=== PATIENT | female | born 1985 | race Caucasian/White ===

== ENCOUNTER 2018-08-25 18:16 | Emergency (ER) | payer OTHER ==
[2018-08-25 18:46] VITALS: BMI 26.2
[2018-08-25 18:49] VITALS: TEMP 98.4
[2018-08-25] MEDS ORDERED: Sodium Chloride 0.9% 1,000 ML IV STA (18:54)
[2018-08-25 19:39] LABS: BASO # 0.03 K/mm3 (0.0-2.0); BASO % 0.4 % (0.0-3.0); EOS # 0.2 (0.0-0.7); EOS % 2.9 % (1.5-5.0); HEMOGLOBIN 12.4 g/dL (12.0-16.0); LYMPH # 2.9 (1.2-3.4); LYMPH % 37.7 % (22.0-35.0); MEAN CELL VOLUME 93.1 fl (80.0-105.0); MEAN CORPUSCULAR HEMOGLOBIN 31.6 pg (25.0-35.0); MEAN PLATELET VOLUME 10.8 fl (7.0-11.0); MONO # 0.4 (0.1-0.6); MONO % 5.4 % (1.0-6.0); RBC 3.92 10^6/uL (3.5-6.1); RED CELL DISTRIBUTION WIDTH 13.3 % (11.5-14.5); URINE BILIRUBIN NEGATIVE (NEGATIVE); URINE BLOOD SMALL (NEGATIVE); URINE GLUCOSE (UA) NEGATIVE (NEGATIVE); URINE LEUKOCYTE ESTERASE NEGATIVE Leu/uL (NEGATIVE); URINE PROTEIN NEGATIVE mg/dL (<30 mg/dL); URINE UROBILINOGEN 0.2 E.U./dL (<1 E.U./dL); WHITE BLOOD COUNT 7.6 10^3/uL (4.5-11.0)
[2018-08-25 19:42] LABS: HCG,QUALITATIVE URINE POSITIVE (NEGATIVE); URINE APPEARANCE CLEAR (CLEAR); URINE COLOR LIGHT YELLOW (YELLOW)
[2018-08-25 19:47] LABS: INR 1.06; PROTHROMBIN TIME 11.8 SECONDS (9.4-12.5); URINE EPITHELIAL CELLS 0 - 2 /hpf (0-5); URINE RBC 0 - 2 /hpf (0-2)
[2018-08-25 19:51] LABS: ALB/GLOB RATIO 1.3 (1.1-1.8); ALBUMIN 4.4 g/dL (3.0-4.8); ALT/SGPT 17 U/L (7-56); AST/SGOT 22 U/L (14-36); BLOOD UREA NITROGEN 13 mg/dL (7-21); CALCIUM 9.6 mg/dL (8.4-10.5); GFR NON-AFRICAN AMERICAN > 60
[2018-08-25] MEDS ORDERED: Potassium Chloride 20 mEq ER Tab PO STA (20:14)
--- NOTE | 2018-08-25 21:35 | ED PDOC ---
Arrival/HPI - General Chief Complaint: Female Genitourinary Time Seen by Provider: 08/25/18 18:17 Historian: Patient - History of Present Illness Narrative History of Present Illness (Text): 33 y/o female A1 9-weeks by LMP presents to the ED c/o vaginal bleeding starting at 830am today. Associated clots and lower abdominal cramping. Follows regularly with her OBGYN. Per pt, she has had an ultrasound confirming IUP. Denies fever, chills, back pain, nausea, vomiting, urinary symptoms, or any other associated symptoms. Past Medical History - Psychiatric Hx Substance Use: No Family/Social History - Physician Review Nursing Documentation Reviewed: Yes Family/Social History: No Known Family HX Smoking Status: Never Smoked Hx Alcohol Use: No Hx Substance Use: No Allergies/Home Meds Allergies/Adverse Reactions: Allergies No Known Allergies Allergy (Verified 08/25/18 18:45) Home Medications: Home Meds Medication Instructions Recorded Confirmed No Known Home Med 08/25/18 08/25/18 Review of Systems - Review of Systems Constitutional: Normal. absent: Fevers Eyes: Normal. absent: Vision Changes ENT: Normal Respiratory: Normal. absent: SOB, Cough Cardiovascular: Normal. absent: Chest Pain, Palpitations Gastrointestinal: Abdominal Pain. absent: Stool Changes, Nausea, Vomiting, Appetite Changes Genitourinary Female: Vaginal Bleeding. absent: Dysuria, Frequency Musculoskeletal: Normal. absent: Arthralgias, Back Pain, Neck Pain Skin: Normal. absent: Rash Neurological: Normal. absent: Headache, Dizziness Endocrine: Normal Hemo/Lymphatic: Normal Psychiatric: Normal Physical Exam Vital Signs Reviewed: Yes Vital Signs Temp Pulse Resp BP Pulse Ox 08/25/18 18:46 98.4 F 65 18 126/79 100 Temperature: Afebrile Blood Pressure: Normal Pulse: Regular Respiratory Rate: Normal Appearance: Positive for: Well-Appearing, Non-Toxic, Comfortable Pain Distress: None Mental Status: Positive for: Alert and Oriented X 3 - Systems Exam Head: Present: Atraumatic, Normocephalic Pupils: Present: PERRL Extroacular Muscles: Present: EOMI Conjunctiva: Present: Normal Mouth: Present: Moist Mucous Membranes Neck: Present: Normal Range of Motion Respiratory/Chest: Present: Clear to Auscultation, Good Air Exchange. No: Respiratory Distress, Accessory Muscle Use Cardiovascular: Present: Regular Rate and Rhythm, Normal S1, S2 Abdomen: Present: Normal Bowel Sounds. No: Tenderness, Distention, Peritoneal Signs, Rebound, Guarding Back: Present: Normal Inspection. No: CVA Tenderness, Paraspinal Tenderness Upper Extremity: Present: Normal Inspection, Normal ROM, NORMAL PULSES, Neurovascularly Intact, Capillary Refill < 2s. No: Cyanosis, Edema, Temperature Abnormalties Lower Extremity: Present: Normal ROM Neurological: Present: GCS=15, CN II-XII Intact, Speech Normal, Motor Func Grossly Intact, Normal Sensory Function, Gait Normal Skin: Present: Warm, Dry, Normal Color. No: Rashes Psychiatric: Present: Alert, Oriented x 3, Normal Insight, Normal Concentration, Normal Affect, Normal Mood Medical Decision Making ED Course and Treatment: Initial Plan: * CBC, CMP * UA, culture * hcg quant * type and screen * Transvaginal US Bloodwork reviewed, unremarkable UA shows no infection US shows IUP at 6 weeks, no HR Bloodtype A+, no indication for rhogam Advised OB followup in 48 hours for repeat hcg and ultrasound. Diagnostic testing results and plan of care discussed with patient. Strict instructions given regarding prescription use, importance of followup, and signs/symptoms to return to ER including worsening pain, fever, chills, vomiting, or any other new/worsening symptoms. Pt verbalized understanding of discussion. Patient is A&Ox3, ambulating with steady gait, with vital signs stable for discharge. - Lab Interpretations Lab Results: PT 11.8 SECONDS (9.4-12.5) 08/25/18 19:25 INR 1.06 08/25/18 19:25 APTT 29.0 Seconds (26.9-38.3) 08/25/18 19:25 Total Bilirubin 0.4 mg/dL (0.2-1.3) 08/25/18 19:25 AST 22 U/L (14-36) 08/25/18 19:25 ALT 17 U/L (7-56) 08/25/18 19:25 Alkaline Phosphatase 42 U/L (38-126) 08/25/18 19:25 Total Protein 7.8 g/dL (5.8-8.3) 08/25/18 19:25 Albumin 4.4 g/dL (3.0-4.8) 08/25/18 19:25 Globulin 3.4 gm/dL 08/25/18: Albumin/Globulin Ratio 1.3 (1.1-1.8) 08/25/18 19:25 Urine Color Light yellow (YELLOW) 08/25/18:25 Urine Appearance Clear (CLEAR) 08/25/18: Urine pH 6.0 (4.7-8.0) 08/25/18: Ur Specific Ina 1.025 (1.005-1.035) 08/25/18: Urine Protein Negative mg/dL (<30 mg/dL) 08/25/18: Urine Glucose (UA) Negative mg/dL (NEGATIVE) 08/25/18: Urine Ketones Negative mg/dL (NEGATIVE) 08/25/18: Urine Blood Small (NEGATIVE) H 08/25/18:25 Urine Nitrate Negative (NEGATIVE) 08/25/18: Urine Bilirubin Negative (NEGATIVE) 08/25/18: Urine Urobilinogen 0.2 E.U./dL (<1 E.U./dL) 08/25/18:25 Ur Leukocyte Esterase Negative [place]/uL (NEGATIVE) 08/25/18:25 Urine RBC 0 - 2 /hpf (0-2) 08/25/18:25 Urine WBC None /hpf (0-6) 08/25/18:25 Ur Epithelial Cells 0 - 2 /hpf (0-5) 08/25/18:25 Urine HCG, Qual Positive (NEGATIVE) 08/25/18 Beta HCG, Quant 89384.00 mIU/mL (0-6.15) H 08/25/18:25 Urine HCG, Qual Positive (NEGATIVE) 08/25/18 19:25 08/25/18 19:25 08/25/18:25 Lab Results 08/25/18 21:40: Blood Type A POSITIVE, Antibody Screen Negative, BBK History Checked No verified bt 08/25/18:25: Beta HCG, Quant 45714.00 H 08/25/18:25: Sodium 140, Potassium 3.5 L, Chloride 104, Carbon Dioxide 25, Anion Gap 14, BUN 13, Creatinine 0.6 L, Est GFR ( Amer) > 60, Est GFR (Non-Af Amer) > 60, Random Glucose 98, Calcium 9.6, Total Bilirubin 0.4, AST 22, ALT 17, Alkaline Phosphatase 42, Total Protein 7.8, Albumin 4.4, Globulin 3.4, Albumin/Globulin Ratio 1.3 08/25/18 19:25: Urine Color Light yellow, Urine Appearance Clear, Urine pH 6.0, Ur Specific Ina 1.025, Urine Protein Negative, Urine Glucose (UA) Negative, Urine Ketones Negative, Urine Blood Small H, Urine Nitrate Negative, Urine Bilirubin Negative, Urine Urobilinogen 0.2, Ur Leukocyte Esterase Negative, Urine RBC 0 - 2, Urine WBC None, Ur Epithelial Cells 0 - 2, Urine HCG, Qual Positive 08/25/18 19:25: PT 11.8, INR 1.06, APTT 29.0 08/25/18 19:25: WBC 7.6, RBC 3.92, Hgb 12.4, Hct 36.5, MCV 93.1, MCH 31.6, MCHC 34.0, RDW 13.3, Plt Count 179, MPV 10.8, Neut % (Auto) 53.6, Lymph % (Auto) 37.7 H, [place] % (Auto) 5.4, Eos % (Auto) 2.9, Baso % (Auto) 0.4, Lymph # (Auto) 2.9, [place] # (Auto) 0.4, Eos # (Auto) 0.2, Baso # (Auto) 0.03, Absolute Neuts (auto) 4.10 I have reviewed the lab results: Yes - RAD Interpretation Narrative RAD Interpretations (Text): 08/29/18 09:50 Transvaginal Ultrasound: FINDINGS: The uterus is grossly unremarkable. There is a single intrauterine estimated to be roughly 6 weeks and 1 days post -3 days. No cardiac activity detected. Intrauterine demise not excluded. Recommend short-t erm interval follow-up. The right ovary has a 2.0 centimeter corpus luteum cyst. No free fluid the pelvis. IMPRESSION: As above. Radiology Orders: 08/25/18 18:53 OB TRANSVAGINAL [US] Stat Harness And Bag Inspector: Radiologist - Medication Orders Current Medication Orders: Discontinued Medications Sodium Chloride (Sodium Chloride 0.9%) 1,000 mls @ 999 mls/hr IV .Q1H1M STA Stop: 08/25/18 19:54 Last Admin: 08/25/18 19:45 Dose: 999 mls/hr eMAR Start Stop Document 08/25/18 19:45 OCS (Rec: 08/25/18 19:45 OCS [facility] [place]-ER-20) Intravenous Solution Start Date 08/25/18 Start Time 19:45 End Date 08/25/18 End time 20:46 Total Infusion Time 61 Disposition/Present on Arrival - Present on Arrival Any Indicators Present on Arrival: No History of DVT/PE: No History of Uncontrolled Diabetes: No Urinary Catheter: No History of Decub. Ulcer: No History Surgical Site Infection Following: None - Disposition Have Diagnosis and Disposition been Completed?: Yes Diagnosis: Bleeding in early Disposition: HOME/ ROUTINE Disposition Time: 22:18 Condition: STABLE Discharge Instructions (ExitCare): Bleeding With (DC) Additional Instructions: Increase fluids Strict bedrest, no strenuous activity Followup with OBGYN in 2 days for repeat hcg and ultrasound Followupw ith primary doctor within 2 days Return to ER with any new/worsening symptoms Referrals: Andrew Kimball MD [Staff Provider] - Follow up with primary Angelika Nick MD [Medical Doctor] - Follow up with primary [facility] [place] [Outside] - Follow up with primary Forms: [facility] (Macedonian), WORK NOTE
[2018-08-25 23:14] VITALS: BP 92/54; PULSE 69; RESP 18; O2SAT 100
--- NOTE | 2018-08-26 15:24 | US ---
Date of service: 08/25/2018 PROCEDURE: HISTORY: 9 weeks by LMP, vaginal bleeding COMPARISON: TECHNIQUE: FINDINGS: The uterus is grossly unremarkable. There is a single intrauterine estimated to be roughly 6 weeks and 1 days post -3 days. No cardiac activity detected. Intrauterine demise not excluded. Recommend short-term interval follow-up. The right ovary has a 2.0 centimeter corpus luteum cyst. No free fluid the pelvis. IMPRESSION: As above.
== END 2018-08-25 23:14 | disposition home or self-care (01) ==
LOC: ED 18:16
DX: O20.9 Hemorrhage in early pregnancy, unspecified (principal); Z3A.09 9 weeks gestation of pregnancy
CPT/HCPCS: 76817; 80053; 81001; 81025; 84702; 84703; 85025; 85610; 85730; 86850; 86900; 87086; 96360; 99283; J7030